=== PATIENT | male | born 1995 | race Caucasian/White ===

== ENCOUNTER 2021-11-24 05:21 | Inpatient (IN) | payer MEDICAID, OTHER, SELFPAY ==
[2021-11-24 05:32] VITALS: BP 162/110; PULSE 115; RESP 16; TEMP 36.6; O2SAT 95; BMI 26.4
[2021-11-24 06:31] LABS: COVID-19 Test Negative (Negative)
[2021-11-24 06:32] LABS: Amphetamine Screen Urine Not Detected (Not Detect); Barbiturates, Urine Not Detected (Not Detect); Benzodiazepines Screen Urine Not Detected (Not Detect); Cannabinoid Screen Urine Not Detected (Not Detect); Cocaine Screen Urine Not Detected (Not Detect); Fentanyl, urine Not Detected (Not Detect); Opiate Screen Urine Not Detected (Not Detect); Phencyclidine Screen Urine Not Detected (Not Detect)
--- NOTE | 2021-11-24 07:23 | ED.PSYCH ---
HPI - Psych General Chief Complaint: Psychiatric Symptoms Stated Complaint: crisis Time Seen by Provider: 11/24/21 06:43 Source: patient and EMS Mode of arrival: EMS History of Present Illness HPI Narrative: this is a 25 years old patient presented to the emergency department with chief complaint of depression, he states that he is in lot of stress, he feels that the his suicide. complaint: suicidal ideation Onset (ago): day(s) (4) Duration: constant History of same: No Relieving factors: none Exacerbating factors: none Context: recent alcohol abuse Associated psychiatric symptoms: depression Related Data Home Medications Medication Instructions Recorded Confirmed No Known Home Meds 11/24/21 11/24/21 Allergies Allergy/AdvReac Type Severity Reaction Status Date / Time No Known Allergies Allergy Verified 11/24/21 05:38 Review of Systems Review of Systems: Yes all other systems are reviewed and are negative ENT: Reports system reviewed and no additional complaints, except as documented Cardiovascular: Cardiovascular: Reports no additional cardiovascular complaints Respiratory: Respiratory: Reports no additional respiratory complaints Gastrointestinal: Gastrointestinal: Reports no additional gastrointestinal complaints Psychiatric: Psychiatric: Reports depression [facility] Past Medical History [facility] Narrative: denies [facility] Social History Social History Advance Directives: No Advance Directives Information Provided: No Healthcare Proxy: No Guardian: No Physical Exam Vital Signs: Vital Signs: Last Vital Signs Temp 97.8 F 11/24/21 05:32 Pulse 115 H 11/24/21 05:32 Resp 16 11/24/21 05:32 BP 162/110 H 11/24/21 05:32 Pulse Ox 95 11/24/21 05:32 O2 Del Method 11/24/21 05:32 BMI result Body Mass Index 26.4 Const: General: cooperative, healthy appearing, comfortable, no acute distress, well developed, alert and awake Nutritional Appearance: average body habitus Orientation/consciousness: patient oriented x3 HEENT: Head: Yes normal to inspection and Yes No palpable skull fracture present Ears: hearing grossly normal bilaterally General nose exam: Normal external nose present Face and sinus: Yes normal facial exam Mouth: Normal oral and palatal mucosa present Throat: Yes posterior oropharynx normal Neck: Neck: Yes normal visual inspection, Yes full ROM and Yes no lymphadenopathy Thyroid: Thyroid normal Chest: Chest palpation & inspection: normal inspection of the chest Resp: Effort & Inspection: normal respiratory effort and able to speak in complete sentences Auscultation: clear to auscultation bilaterally Cardio: Jugular venous distension: no JVD Rate: regular rate Rhythm: regular rhythm GI: Inspection: Yes normal to inspection Palpation (GI): Soft to palpation, not firm and nontender Auscultation: normal bowel sounds Skin: General skin exam: no rashes or lesions noted Neuro: General: patient oriented x3 Psych: Appearance: well kempt Mental Status: mental status grossly normal Speech and movement: Clear speech present Affect: Sad affect present Attitude: cooperative Thought process: Normal thought process present Thought content: Normal thought content present Course Reevaluation(s) Reevaluation #1: seen by crisis inpatient level of care Time: 14:13 MDM - Psych Lab Data Result diagrams: 11/24/21 10:19 11/24/21 10:19 Labs: Lab Results 11/24/21 11/24/21 11/24/21 Range/Units 06:05 06:05 10:19 WBC 8.1 (4.8-10.8) X10*3/uL RBC 5.81 H (4.60-5.80) X10*6/uL Hgb 17.0 (14.0-18.0) g/dl Hct 48.5 (42.0-52.0) % MCV 83.5 (80.0-98.0) fL MCH 29.3 (27.0-33.0) pg MCHC 35.1 (31.0-36.0) g/dl RDW 11.9 (11.0-16.0) % Plt Count 266 (160-400) X10*3/uL MPV 9.3 L (9.4-12.4) fL Immature Gran % (Auto) 0.2 (0.0-0.4) % Neut % (Auto) 45.0 (45-73) % Lymph % (Auto) 41.9 H (20-40) % [place] % (Auto) 5.5 (2-11) % Eos % (Auto) 6.8 H (0-4) % Baso % (Auto) 0.6 (0-2) % Lymph # (Auto) 3.4 (1.2-4.9) X10*3/uL [place] # (Auto) 0.5 (0.1-1.2) X10*3/uL Eos # (Auto) 0.6 H (0.0-0.4) X10*3/uL Baso # (Auto) 0.1 (0.0-0.2) X10*3/uL Abs Immat Gran (auto) 0.02 (0.00-0.03) X10*3/uL Absolute Neuts (auto) 3.7 (2.0-8.3) x10*3/uL Absolute Nucleated RBC 0.000 (0.0-0.012) X10*3/uL Nucleated RBC % (auto) 0.0 (0.0-0.2) /100WBC Sodium (135-145) mmol/L Potassium (3.3-5.1) mmol/L Chloride (96-108) mmol/L Carbon Dioxide (22-29) mmol/L Anion Gap (12-20) BUN (9-16) mg/dL Creatinine (0.5-1.4) mg/dL Estim Creat Clear Calc Estimated GFR Random Glucose (60-115) mg/dL Calcium (8.4-10.2) mg/dL Total Bilirubin (0.0-1.0) mg/dL AST (5-37) U/L ALT (0-40) U/L Alkaline Phosphatase (39-117) U/L Total Protein (6.5-8.0) g/dL Albumin (3.5-5.0) g/dL Urine Opiates Screen Not Detected (Not Detect) Urine Fentanyl Screen Not Detected (Not Detect) Ur Barbiturates Screen Not Detected (Not Detect) Ur Phencyclidine Scrn Not Detected (Not Detect) Ur Amphetamines Screen Not Detected (Not Detect) U Benzodiazepines Scrn Not Detected (Not Detect) Urine Cocaine Screen Not Detected (Not Detect) U Marijuana (THC) Screen Not Detected (Not Detect) Ethyl Alcohol mg/dL COVID-19 ([facility]E) Negative (Negative) COVID-19 Clin Com See Note 11/24/21 11/24/21 Range/Units 10:19 10:19 WBC (4.8-10.8) X10*3/uL RBC (4.60-5.80) X10*6/uL Hgb (14.0-18.0) g/dl Hct (42.0-52.0) % MCV (80.0-98.0) fL MCH (27.0-33.0) pg MCHC (31.0-36.0) g/dl RDW (11.0-16.0) % Plt Count (160-400) X10*3/uL MPV (9.4-12.4) fL Immature Gran % (Auto) (0.0-0.4) % Neut % (Auto) (45-73) % Lymph % (Auto) (20-40) % [place] % (Auto) (2-11) % Eos % (Auto) (0-4) % Baso % (Auto) (0-2) % Lymph # (Auto) (1.2-4.9) X10*3/uL [place] # (Auto) (0.1-1.2) X10*3/uL Eos # (Auto) (0.0-0.4) X10*3/uL Baso # (Auto) (0.0-0.2) X10*3/uL Abs Immat Gran (auto) (0.00-0.03) X10*3/uL Absolute Neuts (auto) (2.0-8.3) x10*3/uL Absolute Nucleated RBC (0.0-0.012) X10*3/uL Nucleated RBC % (auto) (0.0-0.2) /100WBC Sodium 142 (135-145) mmol/L Potassium 4.2 (3.3-5.1) mmol/L Chloride 104 (96-108) mmol/L Carbon Dioxide 25 (22-29) mmol/L Anion Gap 17 (12-20) BUN 9 (9-16) mg/dL Creatinine 1.03 (0.5-1.4) mg/dL Estim Creat Clear Calc 114.7 Estimated GFR > 60 Random Glucose 99 (60-115) mg/dL Calcium 10.1 (8.4-10.2) mg/dL Total Bilirubin 2.0 H (0.0-1.0) mg/dL AST 29 (5-37) U/L ALT 42 H (0-40) U/L Alkaline Phosphatase 85 (39-117) U/L Total Protein 8.7 H (6.5-8.0) g/dL Albumin 5.5 H (3.5-5.0) g/dL Urine Opiates Screen (Not Detect) Urine Fentanyl Screen (Not Detect) Ur Barbiturates Screen (Not Detect) Ur Phencyclidine Scrn (Not Detect) Ur Amphetamines Screen (Not Detect) U Benzodiazepines Scrn (Not Detect) Urine Cocaine Screen (Not Detect) U Marijuana (THC) Screen (Not Detect) Ethyl Alcohol 95 mg/dL COVID-19 ([facility]E) (Negative) COVID-19 Clin Com Discharge Plan Discharge Clinical Impression: Depression Patient Disposition: Still a Patient Prescriptions: No Action No Known Home Meds
--- NOTE | 2021-11-24 08:49 | PC.NURSE ---
Patient is in bed appears sleeping, no distress observed/reported, patient doesn't want to speak with his girlfriend at this time, N referral completed/confirmed/pending ETA, behavior non concerning, will continue to monitor
[2021-11-24 10:24] LABS: Basophils Absolute Auto 0.1 X10*3/uL (0.0-0.2); Basophils Percent Auto 0.6 % (0-2); Eosinophils Absolute Auto 0.6 X10*3/uL (0.0-0.4); Eosinophils Percent Auto 6.8 % (0-4); Hematocrit 48.5 % (42.0-52.0); Imm Gran Abs Auto 0.02 X10*3/uL (0.00-0.03); Imm Gran Pct Auto 0.2 % (0.0-0.4); Lymphocytes Absolute Auto 3.4 X10*3/uL (1.2-4.9); Lymphocytes Percent Auto 41.9 % (20-40); MANUAL DIFF FLAG NO; Mean Corpuscular HGB Conc 35.1 g/dl (31.0-36.0); Mean Corpuscular Hemoglobin 29.3 pg (27.0-33.0); Mean Corpuscular Volume 83.5 fL (80.0-98.0); Mean Platelet Volume 9.3 fL (9.4-12.4); Monocytes Absolute Auto 0.5 X10*3/uL (0.1-1.2); Monocytes Percent Auto 5.5 % (2-11); Neutrophils Absolute Auto 3.7 x10*3/uL (2.0-8.3); Platelet Count 266 X10*3/uL (160-400); Red Blood Count 5.81 X10*6/uL (4.60-5.80); Red Cell Distribution Width 11.9 % (11.0-16.0); White Blood Count 8.1 X10*3/uL (4.8-10.8)
[2021-11-24 10:48] LABS: Ethanol 95 mg/dL
[2021-11-24 10:51] LABS: Alanine Aminotransferase 42 U/L (0-40); Albumin Level 5.5 g/dL (3.5-5.0); Alkaline Phosphatase 85 U/L (39-117); Anion Gap 17 (12-20); Aspartate Amino Transferase 29 U/L (5-37); Blood Urea Nitrogen 9 mg/dL (9-16); Calcium 10.1 mg/dL (8.4-10.2); Carbon Dioxide 25 mmol/L (22-29); Chloride 104 mmol/L (96-108); Creatinine Clr Calc Pharmacy 114.7; Estimated Glomerular Filt Rate > 60; Glucose Random 99 mg/dL (60-115); Potassium 4.2 mmol/L (3.3-5.1); Sodium 142 mmol/L (135-145); Total Protein 8.7 g/dL (6.5-8.0)
--- NOTE | 2021-11-24 11:57 | PC.NURSE ---
[facility] AT BEDSIDE
[2021-11-24 14:34] VITALS: BP 147/82; PULSE 103; RESP 18; TEMP 36.3; O2SAT 99
[2021-11-25 01:05] VITALS: BP 172/103; PULSE 85; RESP 17; TEMP 37.2; O2SAT 98
[2021-11-25] MEDS: lisinopriL 10 MG TABLET PO ×2 (03:02→08:23)
--- NOTE | 2021-11-25 03:13 | PC.NURSE ---
Patient's blood pressure was assessed at 0105 was 172/103, provider notified and provider spoke with patient educated him, started Lisinopril 10 mg daily, patient agreed to start the medication, first dose lisinopril 10 mg po administered at 0302, patient is in bed currently resting quietly, behavior pleasant and non concerning, disposition per care team is voluntary inpatient bed search, will continue to monitor.
--- NOTE | 2021-11-25 07:31 | PC.NURSE ---
patient appears to remain asleep at present patient appears in no distress
[2021-11-25 12:58] LABS: COVID-19 Test Negative (Negative)
[2021-11-25 13:39] VITALS: BP 153/88; PULSE 78; O2SAT 97
--- NOTE | 2021-11-25 16:35 | PC.ADMIT ---
Pt is a 25 year old , [place]ian speaking male. Admitted from [facility] ED POD at 1545. CV. Legals signed. Pt placed on 15 minute checks. Pt presented to [facility] ED via EMS d/t increased depression and vague SI. Pt also reports vague HI. Pt states HI is not directed at anyone but just a general feeling. Pt states he has had feelings of depression, SI, and HI for the past year and a half. Pt states he has no PCP, therapist or psychiatrist and has never been on any psychiatric medications. Pt states he does not want to act on his thoughts and feels helpless to symptoms of HI and SI. Pt contracts for safety.
[2021-11-25 16:47] VITALS: BP 128/84; PULSE 90; RESP 18; O2SAT 98
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
[2021-11-26 08:30] VITALS: BP 132/85; PULSE 84; TEMP 36.6; O2SAT 98
[2021-11-26] MEDS: lisinopriL 10 MG TABLET PO (08:43)
[2021-11-26] MEDS: FLUoxetine HCl 20 MG CAPSULE PO (12:29)
--- NOTE | 2021-11-26 16:53 | P.PNPSI_ITS ---
Subjective Subjective Date of Service: 11/26/21 Reason For Visit: SI Interim History: pt calm, cooperative, personable. discuss his visions of hurting others, which are ego-dystonic. he has no symptoms of psychosis otherwise. may be related to depression. agrees to treat as depression/anxiety for now and see if intrusive visions resolve with mood Sx. R/B of SSRIs discussed, pt agrees to trial of prozac. start at 20. per staff, vague SI/ HI. no psych Hx or current care. Mental Status Exam Mental Status Exam Narrative: A&O. Well groomed, good hygiene, normal body habitus. Good eye contact, attentive. No Tics or Tremors. No abnormal involuntary movements. Calm, cooperative, engaged. Non-pressured speech, spontaneous with regular rate and rhythm, normal volume and prosody. No prolonged speech latency or dysarthria. Mood is ?depressed and anxious,? affect is somewhat congruent. Currently denies SI/SIB/HI upon inquiry. Denies A/VH or delusional thought content. Thoughts are coherent, organized. No known cognitive or memory impairment. Insight/ Judgment fair and adequate. Diagnostics Vital Signs (24Hr): Vital Signs - 24 hr 11/26/21 08:30 Temperature 97.9 F Pulse Rate 84 Blood Pressure 132/85 Pulse Oximetry 98 Oxygen Delivery Method Room Air BMI result Body Mass Index 26.4 Labs Results: 11/24/21 10:19 11/24/21 10:19 Labs: Laboratory Results - last 48 hr 11/25/21 12:32 COVID-19 ([facility]) Negative COVID-19 Clin Com See Note Medications Medications Current Medications Acetaminophen (Acetaminophen 325 Mg Tablet) 650 mg PO Q6H PRN PRN Reason: Headache/Pain Mild Scale (1-3) Al Hydroxide/Mg Hydroxide (Magnesium Hydrox/Alum Hydrox 30 Ml Oral.Susp) 30 ml PO Q6H PRN PRN Reason: Heartburn/Nausea Fluoxetine HCl (Fluoxetine Hcl 20 Mg Capsule) 20 mg PO DAILY RASHEL Last Admin: 11/26/21 12:29 Dose: 20 mg Hydroxyzine HCl (Hydroxyzine Hcl 25 Mg Tablet) 25 mg PO Q6H PRN PRN Reason: Anxiety Lisinopril (Lisinopril 10 Mg Tablet) 10 mg PO DAILY RASHEL; Protocol Last Admin: 08/09/22 08:43 Dose: 10 mg Magnesium Hydroxide (Milk Of Magnesia 30 Ml Oral.Susp) 30 ml PO DAILY PRN PRN Reason: Constipation Melatonin (Melatonin 3 Mg Tablet) 3 mg PO BEDTIME RASHEL Last Admin: 11/26/21 00:39 Dose: Not Given Trazodone HCl (Trazodone Hcl 50 Mg Tablet) 50 mg PO BEDTIME PRN PRN Reason: Insomnia Allergies Allergies Allergy/AdvReac Type Severity Reaction Status Date / Time No Known Allergies Allergy Verified 11/24/21 05:38 Assessment & Plan Assessment & Plan (1) MDD (major depressive disorder), recurrent episode, moderate: Status: Acute Code(s): F33.1 - Major depressive disorder, recurrent, moderate (2) EMILY (generalized anxiety disorder): Status: Acute Code(s): F41.1 - Generalized anxiety disorder Plan Gustavo is a 25 y.o. Male who carries a dx of MDD, recurrent and EMILY. He presented to [facility] on 11/24/2021 due to SI, was [place] by PD [place] bridge, he did not remember this incident as he had black out from drinking the night before. Pt said he had 3 shots and that he does not drink often, denies withdrawal. In the ED pt was started on lisinopril 10 mg for essential HTN. Pt denies past psych history, no hx of being on pysch medication. Precipitating factors include that pt went out to the bar with some family and his girlfriend and he got into an argument with his gf and she left. Per pt, I was trying to find her and ended up there? on the bridge.? 11/25: pt would benefit from antidepressant trial and referral to OP therapy, will defer to primary psych team. Will start melatonin 3 mg for insomnia. 11/26: started prozac 20 mg daily for depression and anxiety. will not treat quas i-psychotic Sx (intrusive and ego-dystonic visions of his hurting others) directly at the moment and hope they are related to depression and will resolve with Tx of depression. I spent __25____ minutes with the patient and/or on the patient floor today, greater than?50% of which was spent counseling/coordinating care. Reason for contiued inpatient stay Substantial Risk for: harm to self and inability to function
[2021-11-26] MEDS: Melatonin 3 MG TABLET PO (21:36)
[2021-11-26 21:37] VITALS: BP 136/86; PULSE 89; TEMP 36.7; O2SAT 97
[2021-11-27 08:30] VITALS: BP 143/94; PULSE 68; RESP 16; TEMP 36.7; O2SAT 98
[2021-11-27] MEDS: FLUoxetine HCl 20 MG CAPSULE PO (09:05)
[2021-11-27] MEDS: lisinopriL 10 MG TABLET PO (09:06)
[2021-11-27 10:06] VITALS: BP 139/91; PULSE 78
[2021-11-27] MEDS: cloNIDine HCL 0.1 MG TABLET PO ×2 (13:14→15:47)
[2021-11-27 13:18] VITALS: BP 146/93; PULSE 74
[2021-11-27 15:32] VITALS: BP 114/61; PULSE 74
--- NOTE | 2021-11-27 16:24 | P.PNPSI_ITS ---
Subjective Subjective Date of Service: 11/27/21 Reason For Visit: SI Interim History: calm, cooperative, pleasant. does acknowledge MNA and nightmares. states intrusive visions have decreased in frequency but continue to occur. agrees to start clonidine to suppress hypervigilance/anxiety. per staff, denies psych Sx. sleeping and eating well. no SI/HI. pleasant, terse. anxiety improved. no megha groups. Mental Status Exam Mental Status Exam Narrative: A&O. Well groomed, good hygiene, normal body habitus. Good eye contact, attentive. No Tics or Tremors. No abnormal involuntary movements. Calm, cooperative, engaged. Non-pressured speech, spontaneous with regular rate and rhythm, normal volume and prosody. No prolonged speech latency or dysarthria. Mood is anxious, affect is somewhat congruent. no SI/HI/AVH expressed. Thoughts are coherent, organized. No known cognitive or memory impairment. Insight/Judgment fair and adequate. Diagnostics Vital Signs (24Hr): Vital Signs - 24 hr 11/26/21 21:37 11/27/21 08:30 11/27/21 10:06 Temperature 98.1 F 98.1 F Pulse Rate 89 68 78 Respiratory Rate 16 Blood Pressure 136/86 143/94 H 139/91 H Pulse Oximetry 97 98 Oxygen Delivery Method Room Air Room Air 11/27/21 13:18 11/27/21 15:32 Temperature Pulse Rate 74 74 Respiratory Rate Blood Pressure 146/93 H 114/61 Pulse Oximetry Oxygen Delivery Method BMI result Body Mass Index 26.4 Labs Results: 11/24/21 10:19 11/24/21 10:19 Medications Medications Current Medications Acetaminophen (Acetaminophen 325 Mg Tablet) 650 mg PO Q6H PRN PRN Reason: Headache/Pain Mild Scale (1-3) Al Hydroxide/Mg Hydroxide (Magnesium Hydrox/Alum Hydrox 30 Ml Oral.Susp) 30 ml PO Q6H PRN PRN Reason: Heartburn/Nausea Clonidine HCl (Clonidine Hcl 0.2 Mg Tablet) 0.2 mg PO BEDTIME [facility]; Protocol Clonidine HCl (Clonidine Hcl 0.1 Mg Tablet) 0.1 mg PO BID@0900,1500 [facility]; Protocol Last Admin: 11/27/21 15:47 Dose: 0.1 mg Fluoxetine HCl (Fluoxetine Hcl 20 Mg Capsule) 20 mg PO DAILY [facility] Last Admin: 11/27/21 09:05 Dose: 20 mg Hydroxyzine HCl (Hydroxyzine Hcl 25 Mg Tablet) 25 mg PO Q6H PRN PRN Reason: Anxiety Magnesium Hydroxide (Milk Of Magnesia 30 Ml Oral.Susp) 30 ml PO DAILY PRN PRN Reason: Constipation Melatonin (Melatonin 3 Mg Tablet) 3 mg PO BEDTIME [facility] Last Admin: 11/26/21 21:36 Dose: 3 mg Trazodone HCl (Trazodone Hcl 50 Mg Tablet) 50 mg PO BEDTIME PRN PRN Reason: Insomnia Allergies Allergies Allergy/AdvReac Type Severity Reaction Status Date / Time No Known Allergies Allergy Verified 11/24/21 05:38 Assessment & Plan Assessment & Plan (1) MDD (major depressive disorder), recurrent episode, moderate: Status: Acute Code(s): F33.1 - Major depressive disorder, recurrent, moderate (2) EMILY (generalized anxiety disorder): Status: Acute Code(s): F41.1 - Generalized anxiety disorder Plan Gustavo is a 25 y.o. Male who carries a dx of MDD, recurrent and EMILY. He presented to [facility] ED on 11/24/2021 due to SI, was [place] by PD [place] bridge, he did not remember this incident as he had black out from drinking the night before. Pt said he had 3 shots and that he does not drink often, denies withdrawal. In the ED pt was started on lisinopril 10 mg for essential HTN. Pt denies past psych history, no hx of being on pysch medication. Precipitating factors include that pt went out to the bar with some family and his girlfriend and he got into an argument with his gf and she left. Per pt, I was trying to find her and ended up there? on the bridge.? 11/25: pt would benefit from antidepressant trial and referral to OP therapy, will defer to primary psych team. Will start melatonin 3 mg for insomnia. 11/26: started prozac 20 mg daily for depression and anxiety. will not treat quasi-psychotic Sx (intrusive and ego-dystonic visions of his hurting others) directly at the moment and hope they are related to depression and will resolve with Tx of depression. 11/27: started clonidine 0.1/0.1/0.2 for HTN, anxiety, insomnia, nightmares. I spent ___25___ minutes with the patient and/or on the patient floor today, greater than?50% of which was spent counseling/coordinating care. Reason for contiued inpatient stay Substantial Risk for: harm to others, inability to function and rapid decompensation
[2021-11-27 21:47] VITALS: BP 121/63; PULSE 77; TEMP 36.8; O2SAT 99
[2021-11-27] MEDS: Melatonin 3 MG TABLET PO (21:55)
[2021-11-28 07:00] VITALS: BMI 25.9
[2021-11-28 09:20] VITALS: BP 122/75; PULSE 60; RESP 18; TEMP 36.6; O2SAT 99
[2021-11-28] MEDS: FLUoxetine HCl 20 MG CAPSULE PO (09:22)
[2021-11-28] MEDS: cloNIDine HCL 0.1 MG TABLET PO ×3 (09:26→22:27)
--- NOTE | 2021-11-28 14:17 | HO.PSYCHPN ---
Subjective Subjective Date of Service: 11/28/21 Reason For Visit: SI Interim History: pt states he wasn't sedated last night and doesn't understand why he wasn't given HS meds. feels the dosing during the day has been helpful for anxiety but made him a little tired. he does not wish to change the dosing for now, however. he denies any nightmares and states he slept well last night. agreeable to decrease scheduled HS clonidine from 0.2 mg to 0.1 mg and to increase prozac to 40 mg daily. asking for discharge tomorrow. per staff, dep 2, anx 4. no SI/HI. isolative. did not attend art group. pleasant, flat affect. sleeping well. BP improved. Mental Status Exam Mental Status Exam Narrative: A&O. Well groomed, good hygiene, normal body habitus. Good eye contact, attentive. No Tics or Tremors. No abnormal involuntary movements. Calm, cooperative, engaged. Non-pressured speech, spontaneous with regular rate and rhythm, normal volume and prosody. No prolonged speech latency or dysarthria. Mood is anxious, affect is somewhat congruent. no SI/HI/AVH expressed. Thoughts are coherent, organized. No known cognitive or memory impairment. Insight/Judgment fair and adequate. Diagnostics Vital Signs (24Hr): Vital Signs - 24 hr 11/27/21 15:32 11/27/21 21:47 11/28/21 09:20 Temperature 98.2 F 97.8 F Pulse Rate 74 77 60 Respiratory Rate 18 Blood Pressure 114/61 121/63 122/75 Pulse Oximetry 99 99 Oxygen Delivery Method Room Air Room Air BMI result Body Mass Index 25.9 Labs Results: 11/24/21 10:19 11/24/21 10:19 Medications Medications Current Medications Acetaminophen (Acetaminophen 325 Mg Tablet) 650 mg PO Q6H PRN PRN Reason: Headache/Pain Mild Scale (1-3) Al Hydroxide/Mg Hydroxide (Magnesium Hydrox/Alum Hydrox 30 Ml Oral.Susp) 30 ml PO Q6H PRN PRN Reason: Heartburn/Nausea Clonidine HCl (Clonidine Hcl 0.1 Mg Tablet) 0.1 mg PO BID@0900,1500 [facility]; Protocol Last Admin: 11/28/21 09:26 Dose: 0.1 mg Clonidine HCl (Clonidine Hcl 0.1 Mg Tablet) 0.1 mg PO BEDTIME [facility]; Protocol Fluoxetine HCl (Fluoxetine Hcl 20 Mg Capsule) 40 mg PO DAILY [facility] Hydroxyzine HCl (Hydroxyzine Hcl 25 Mg Tablet) 25 mg PO Q6H PRN PRN Reason: Anxiety Magnesium Hydroxide (Milk Of Magnesia 30 Ml Oral.Susp) 30 ml PO DAILY PRN PRN Reason: Constipation Melatonin (Melatonin 3 Mg Tablet) 3 mg PO BEDTIME [facility] Last Admin: 11/27/21 21:55 Dose: 3 mg Trazodone HCl (Trazodone Hcl 50 Mg Tablet) 50 mg PO BEDTIME PRN PRN Reason: Insomnia Allergies Allergies Allergy/AdvReac Type Severity Reaction Status Date / Time No Known Allergies Allergy Verified 11/24/21 05:38 Assessment & Plan Assessment & Plan (1) MDD (major depressive disorder), recurrent episode, moderate: Status: Acute Code(s): F33.1 - Major depressive disorder, recurrent, moderate (2) EMILY (generalized anxiety disorder): Status: Acute Code(s): F41.1 - Generalized anxiety disorder Plan Gustavo is a 25 y.o. Male who carries a dx of MDD, recurrent and EMILY. He presented to [facility] ED on 11/24/2021 due to SI, was [place] by PD [place] a bridge, he did not remember this incident as he had black out from drinking the night before. Pt said he had 3 shots and that he does not drink often, denies withdrawal. In the ED pt was started on lisinopril 10 mg for essential HTN. Pt denies past psych history, no hx of being on pysch medication. Precipitating factors include that pt went out to the bar with some family and his girlfriend and he got into an argument with his gf and she left. Per pt, I was trying to find her and ended up there? on the bridge.? 11/25: pt would benefit from antidepressant trial and referral to OP therapy, will defer to primary psych team. Will start melatonin 3 mg for insomnia. 11/26: started prozac 20 mg daily for depression and anxiety. will not treat quasi-psychotic Sx (intrusive and ego-dystonic visions of his hurting others) directly at the moment and hope they are related to depression and will resolve with Tx of depression. 11/27: started clonidine 0.1/0.1/0.2 for HTN, anxiety, insomnia, nightmares. 11/28: clonidine changed to 0.1 TID. prozac increased to 40 mg daily as of tomorrow. discharge tomorrow per pt request. I spent ___25___ minutes with the patient and/or on the patient floor today, greater than?50% of which was spent counseling/coordinating care. Reason for contiued inpatient stay Substantial Risk for: inability to function and rapid decompensation
[2021-11-28 15:00] VITALS: BP 132/75; PULSE 61; RESP 18; O2SAT 98
[2021-11-28 22:15] VITALS: BP 130/68; PULSE 58; RESP 18; TEMP 36.9; O2SAT 99
[2021-11-28] MEDS: Melatonin 3 MG TABLET PO (22:27)
[2021-11-29] MEDS: FLUoxetine HCl 20 MG CAPSULE 40 MG PO (08:57)
[2021-11-29] MEDS: cloNIDine HCL 0.1 MG TABLET PO (08:59)
[2021-11-29 09:42] VITALS: BP 114/69; PULSE 60; RESP 18; TEMP 36.6; O2SAT 100
--- NOTE | 2021-11-29 11:19 | PC.NURSE ---
Patient reports he is feeling 'my depression and anxiety are about a 2. Patient denies SI/HI. Currently resting in room, reports some fatigue after starting clonidine, patient educated re: medications. Patient reports he feels ready for discharge today, denies any concerns.
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
--- NOTE | 2021-11-29 13:25 | PC.NURSE ---
Addendum entered by Rhiannon Mondragon 11/29/21 13:28: Patient continues to deny SI/HI, denies AH/VH. Patient reports he is ready for discharge. Original Note: Reviewed patient discharge instructions, belongings with patient. Patient verbalized understanding of instructions, states belongings are all accounted for. No concerns reported, patient states he is ready for discharge, reports his cousin is going to pick him up.
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
== END 2021-11-29 13:31 | disposition home or self-care (01) | DRG 751 ==
LOC: HO.ED 14:13 → HO.PADLT16 11-25 15:25
PROVIDERS: Admitting Provider Psychiatry & Neurology Psychiatry; Emergency Provider Emergency Medicine; Visit Provider Psychiatry & Neurology Psychiatry
DX: F33.1 Major depressive disorder, recurrent, moderate (principal); R45.851 Suicidal ideations; F41.1 Generalized anxiety disorder; I10 Essential (primary) hypertension; Z20.822 Contact with and (suspected) exposure to COVID-19; Z79.899 Other long term (current) drug therapy
CPT/HCPCS: 36415; 80053; 80307; 82077; 85025; 87635; 99285